=== PATIENT | female | born 1980 | race American Indian/Alaskan Native ===

== ENCOUNTER 2017-11-17 07:57 | Emergency (ER) | payer SELFPAY ==
[2017-11-17] MEDS ORDERED: TYLENOL/CODEINE PO ONE (11:41)
[2017-11-17 12:17] LABS: Bilirubin,Urine NEG (Negative); Blood,Urine NEG (Negative); Color,Urine Yellow (Yellow); Mucus,Urine FEW /HPF; Nitrite,Urine NEG (Negative); Protein,Urine <15 mg/dL mg/dL (Negative); Urobilinogen,Urine < 2.0 mg/dL (<2.0)
[2017-11-17 12:19] LABS: HCG Qualitative,Urine Negative (Negative)
--- NOTE | 2017-11-17 13:06 | XRay Report ---
ROUTINE CHEST, TWO VIEWS: HISTORY: Cough. The trachea, heart, mediastinal contour, lung zuñiga and bony thorax are unremarkable. IMPRESSION: Unremarkable chest x-ray.
[2017-11-17 13:27] VITALS: BP 136/92
--- NOTE | 2017-11-17 13:53 | Emergency Department Report ---
Minor Respiratory - HPI Chief Complaint: Upper Respiratory Infection Stated Complaint: FLU LIKE SYMPTOMS Duration: 3 Days Pain Location: Throat, Chest Severity: mild Minor Respiratory: Yes Rhinorrhea, Yes Sore Throat, Yes Able to Tolerate Fluids , Yes Ear Pain, Yes Cough, Yes Chest Pain (pleuritic chest pain while coughing) , Yes Fever, No Sick Contacts, No Hemoptysis, No Shortness of Breath Other History: 37 year old female presents to ED with productive cough, sore throat, congestion, ear pain, bodyaches and intermittent fever x3-4 days. patient states she has chest pain only while coughing. patient states she had fever of 100.9 at home today. patient is stable, neurologically intact and in no acute distress. ED Review of Systems ROS: Stated complaint: FLU LIKE SYMPTOMS Other details as noted in HPI Constitutional: fever. denies: chills Eyes: denies: eye pain, eye discharge, vision change ENT: ear pain, throat pain, congestion Respiratory: cough. denies: shortness of breath, wheezing Cardiovascular: chest pain (pleuritic while coughing). denies: palpitations Endocrine: no symptoms reported Gastrointestinal: denies: abdominal pain, nausea, diarrhea Genitourinary: denies: urgency, dysuria, discharge Musculoskeletal: myalgia. denies: back pain, joint swelling Skin: denies: rash, lesions Neurological: headache. denies: weakness, paresthesias, confusion, abnormal gait, vertigo Psychiatric: denies: anxiety, depression Hematological/Lymphatic: denies: easy bleeding, easy bruising ED Past Medical Hx - Past Medical History Previous Medical History?: Yes Hx Hypertension: Yes Hx CVA: No Hx Heart Attack/AMI: No Hx Congestive Heart Failure: No Hx Diabetes: No Hx Deep Vein Thrombosis: No Hx Pulmonary Embolism: No Hx GERD: No Hx Liver Disease: No Hx Renal Disease: No Hx Sickle Cell Disease: No Hx Arthritis: No Hx Headaches / Migraines: No Hx Seizures: No Hx Kidney Stones: No Hx Psychiatric Treatment: No Hx Asthma: No Hx COPD: No Hx Tuberculosis: No Hx Dementia: No Hx HIV: No Additional medical history: Recurrent sinusitis - Surgical History Past Surgical History?: Yes Hx Coronary Stent: No Hx Open Heart Surgery: No Hx Pacemaker: No Hx Internal Defibrillator: No Hx Cholecystectomy: No Hx Appendectomy: No Hx Breast Surgery: No Additional Surgical History: HEART MURMUR REPAIR,Tubal ligation - Social History Smoking Status: Never Smoker Substance Use Type: Non Opiate Pain - Medications Home Medications: Home Medications Medication Instructions Recorded Confirmed Last Taken Type Sulfamethoxazole/Trimethoprim 1 each PO BID #10 tablet 09/06/15 Unknown Rx [Bactrim DS TAB] amLODIPine [Norvasc] 10 mg PO DAILY 09/06/15 09/06/15 09/06/15 History Acetaminophen/Codeine [Tylenol #3] 1 tab PO Q6H PRN #10 tab 07/25/16 Unknown Rx Ondansetron [Zofran TAB] 4 mg PO Q8HR PRN #14 tablet 07/25/16 Unknown Rx Azithromycin [Zithromax] 250 mg PO DAILY #6 tablet 09/12/16 Unknown Rx Meloxicam 7.5 mg PO QAM #5 tablet 11/17/17 Unknown Rx guaiFENesin DM [Guaifenesin Dm 5 ml PO BID #118 ml 11/17/17 Unknown Rx Syrup] Minor Respiratory Exam - Exam General: Vital signs noted. No distress. Alert and acting appropriately. HEENT: Yes Moist Mucous Membranes, No Pharyngeal Erythema, No Pharyngeal Exudates, No Rhinorrhea, No Conjuctival Injection, No Frontal Tenderness, No Maxillary Tenderness Ear: Neither TM Bulge, Neither TM Erythema, Neither EAC Pain, Neither EAC Discharge Neck: Yes Supple, No Adenopathy Lungs: Yes Good Air Exchange, Yes Cough, No Wheezes, No Ronchi, No Stridor, No Labored Respirations, No Retractions, No Use of Accessory Muscles, No Other Abnormal Lung Sounds Heart: Yes Regular, No Murmur Abdomen: Yes Normal Bowel Sounds, No Tenderness, No Peritoneal Signs Skin: No Rash, No Edema Neurologic: Alert and oriented, no deficits. Musculoskeletal: Unremarkable. ED Course Vital Signs 11/17/17 11/17/17 08:08 13:26 Temperature 99.6 F Pulse Rate 95 H 86 Respiratory 20 18 Rate Blood Pressure 139/97 Blood Pressure 136/92 [Left] O2 Sat by Pulse 99 99 Oximetry ED Medical Decision Making - Lab Data Laboratory Results - last 72 hr 11/17/17 11:51 Urine Color Yellow Urine Turbidity Clear Urine pH 7.0 Ur Specific [place] 1.010 Urine Protein <15 mg/dl Urine Glucose (UA) Neg Urine Ketones Neg Urine Blood Neg Urine Nitrite Neg Urine Bilirubin Neg Urine Urobilinogen < 2.0 Ur Leukocyte Esterase Neg Urine WBC (Auto) 2.0 Urine RBC (Auto) 3.0 U Epithel Cells (Auto) 19.0 H Urine Mucus Few Urine HCG, Qual Negative negative flu swab negative strep swab - Radiology Data Radiology results: report reviewed Chest xray no acute findings per radiologist. - Medical Decision Making 37 year old female presents to ED with cough, congestion, sore throat, ear pain , bodyaches x3-4 days. patient has negative flu swab, negative strep, negative preg test and no sign of UTI in urine and no acute findings on imaging. patient is stable ,neurologically intact and in no acute distress. patient has decreased pain after medications during ED visit. patient understands and agrees to return to ED if symptoms worsen. Critical care attestation.: If time is entered above; I have spent that time in minutes in the direct care of this critically ill patient, excluding procedure time. ED Disposition Clinical Impression: Viral syndrome Disposition: [id number] TO HOME OR SELFCARE Is pt being admited?: No Does the pt Need Aspirin: No Condition: Stable Instructions: Viral Syndrome (ED) Prescriptions: guaiFENesin DM [Guaifenesin Dm Syrup] 5 ml PO BID #118 ml Meloxicam 7.5 mg PO QAM #5 tablet Referrals: PRIMARY CARE, [Primary Care Provider] - 3-5 Days Forms: Work/School Release Form(ED)
== END 2017-11-17 13:26 | disposition home or self-care (01) ==
LOC: ED 07:57
DX: B34.9 Viral infection, unspecified (principal); R07.81 Pleurodynia; H92.09 Otalgia, unspecified ear; I10 Essential (primary) hypertension; Z88.6 Allergy status to analgesic agent; Z88.8 Allergy status to other drugs, medicaments and biological substances
CPT/HCPCS: 71046; 81001; 81025; 87116; 87400; 87430